=== PATIENT | male | born 1950 | race Caucasian/White ===

== ENCOUNTER 2017-04-21 20:27 | Emergency (ER) | payer MEDICARE, OTHER ==
[~2017-04-21 20:27] MED LIST: AMBIEN10 MG PO; ATIVAN2 MG PO; CEFDINIR300 MG PO; DUONEB 2.5-0.5M1 AMP NEB; FLEXERIL10 MG PO; FLOMAX 0.4 MG0.4 MG PO; GABAPENTIN300 MG PO; HYDROCODON-ACE1 EAC6 PO; MEDROL 4MG DOSEP4 MG PO; MOBIC15 MG PO; MUCINEX 600MG600 MG PO; NASONEX17 GM; PAXIL20 MG PO; PREDNISONE 10MG10 MG PO; PROTONIX 40MG T40 MG PO; SINGULAIR10 MG PO; SYMBICORT 16010.2 GM INH; SYNTHROID75 MCG PO; VITAMIN D1000 UNI1 PO; ZITHROMAX250 MG PO
[2017-04-21 20:54] LABS: BASOPHIL 0.5 % (0-2); EOSINOPHIL 0 % (0-7); HCT 40.7 % (42.0-52.0); HGB 12.9 g/dl (13.2-18.0); LYMPHOCYTE 17.1 % (15-48); MCH 30.6 pg (25.0-31.0); MCHC 31.7 g/dL (32.0-36.0); MCV 96.7 fL (78.0-100.0); MONOCYTE 11.4 % (0-12); MPV 9.4 fL (6.0-9.5); PLT 271 K/uL (150-400); RBC 4.21 M/uL (4.70-6.00); RDW 15.2 % (11.5-14.0)
[2017-04-21 21:02] LABS: INR 1.07 (0.9-1.2); PTT 25.3 SECONDS (24.3-32.1)
[2017-04-21 21:05] LABS: LACTIC ACID 2.7 mmol/L (0.5-2.2)
[2017-04-21 21:10] LABS: ALBUMIN 3.5 g/dL (3.4-4.8); BILIRUBIN - TOTAL 0.5 mg/dL (0.1-1.0); CREATININE 1.7 mg/dL (0.7-1.2); MAGNESIUM 2.14 mg/dL (1.40-2.10); POTASSIUM 4.8 mmol/L (3.5-5.1); TOTAL PROTEIN 6.5 g/dL (6.4-8.3)
[2017-04-21 21:12] LABS: CKMB 3.39 ng/mL (0.97-4.94); MYOGLOBIN 147 ng/mL (26-65); PRO-BNP 73 pg/mL (0-125); TROPONIN T < 0.010 ng/mL
== END 2017-04-22 02:41 | disposition home or self-care (01) ==
LOC: FER 20:27
PROVIDERS: Emergency Medicine Emergency Medical Services
DX: J18.9 Pneumonia, unspecified organism (principal); K21.9 Gastro-esophageal reflux disease without esophagitis; J44.9 Chronic obstructive pulmonary disease, unspecified; N18.3 Chronic kidney disease, stage 3 (moderate); E03.9 Hypothyroidism, unspecified; Z90.49 Acquired absence of other specified parts of digestive tract; Z88.2 Allergy status to sulfonamides; Z91.09 Other allergy status, other than to drugs and biological substances; Z87.891 Personal history of nicotine dependence; Z79.52 Long term (current) use of systemic steroids; Z91.040 Latex allergy status; Z91.012 Allergy to eggs; Z79.899 Other long term (current) drug therapy
CPT/HCPCS: 36415; 36600; 71010; 71250; 80053; 82550; 82553; 82803; 83605; 83735; 83874; 83880; 84484; 85025; 85379; 85610; 85730; 87040; 93005; J1956; J2270; J2405; J2930